=== PATIENT | female | born 1995 | race Hispanic/Latino ===

== ENCOUNTER 2021-12-24 14:34 | Inpatient (IN) | payer MEDICAID ==
[2021-12-24] MEDS ORDERED: LACTATED RINGERS 1,000 ML ONE (14:58)
--- NOTE | 2021-12-24 15:46 | History and Physical Report ---
History of Present Illness Date of examination: 12/24/21 Date of admission: 12/24/21 14:34 Chief complaint: Pt sent from [facility] for IOL d/t oligohydramnios and DM type 1 History of present illness: EDC Calculations by LMP: 12/31/2021 Past History : 1 Term Births: 0 Premature Births: 0 Living Children: 0 Para: 0 Mult. Births: 0 Prev : 0 Aborta: 0 Elect. Ab: 0 Spont. Ab: 0 Ectopics: 0 Past Medical History: Type 1 DM- sees Dr Lux Past Surgical History: Negative Past Surgical History Family History Summary: Father - Has Family History of Hypertension - Entered On: 05/04/2021 Mother - Has Family History of Diabetes - Entered On: 05/04/2021 MGF - Has Family History of Coronary Heart Disease - Entered On: 05/04/2021 Past Medical History Anesthesia Complications: negative Anemia: negative Autoimmune Disorder: negative Bleeding Disorder: negative Blood Transfusions: negative Breast Disease: negative Diabetes: negative Heart Disease: negative Hypertension: negative Hepatitis/Liver Disease: negative Kidney Disease/UTI: negative Neurologic/Epilepsy/Migraines: negative Phlebitis/Varicosities: negative Psychiatric: negative Pulmonary Disease/Asthma: negative Thyroid Disease: negative Hospitalizations: negative Surgery (Non-quality assurance lead): Negative Past Surgical History Abnormal PAP: negative GIO Exposure: negative Infertility: negative Uterine Anomaly: negative Uterine Surgery (not C/S): negative Other Gynecologic Problems: negative Infection History Hx of STD: none HIV Risk Eval: no Hepatitis B Risk Eval: low risk Personal hx. of genital herpes: yes Partner hx. of genital herpes: no Rash, Viral, or Febrile illness since last LMP? no Varicella/Chicken Pox Status: Unknown TB Risk: no Genetic History Congenital Heart Defect: Mom: no Dad: no [place] Disease: Mom: no Dad: no Thalassemia Mom: no Dad: no Neural Tube Defect Mom: no Dad: no Down's Syndrome Mom: no Dad: no [place]-Sachs Mom: no Dad: no Sickle Cell Disease/Trait Mom: no Dad: no Hemophilia Mom: no Dad: no Muscular Dystrophy Mom: no Dad: no Cystic Fibrosis Mom: no Dad: no [place] Chorea Mom: no Dad: no Mental Retardation Mom: no Dad: no Fragile X Mom: no Dad: no Other Genetic/Chromosomal Disorder Mom: no Dad: no Child w/other defect Mom: no Dad: no Enviromental Exposures Enviromental Exposures Reviewed Xray Exposure: no Medication, drug, or alcohol use since LMP: no Chemical/Other Exposure: no Exposure to Cat Liter: no Hx of Parvovirus (Fifth Disease): no Occupational Exposure to Children: none Current Allergies (reviewed today): No known allergies Past History Past Medical History: diabetes, other (See HPI) Past Surgical History: other (See HPI) GRADE CHECKER History: other (See HPI) Family/Genetic History: other (See HPI) Social history: other (See HPI) - Obstetrical History Expected Date of Delivery: 01/06/22 Actual Gestation: 38 Week(s) 2 Day(s) : 1 Para: 0 Hx # Term Pregnancies: 0 Number of Pregnancies: 0 Spontaneous Abortions: 0 Induced : 0 Number of Living Children: 0 Medications and Allergies Allergies Allergy/AdvReac Type Severity Reaction Status Date / Time sulfamethoxazole Allergy Hives Verified 12/24/21 15:27 [From Bactrim] trimethoprim [From Bactrim] Allergy Hives Verified 12/24/21 15:27 Home Medications Medication Instructions Recorded Confirmed Last Taken Type Vit-Fe Fumar-FA [ 1 tab PO QDAY 12/25/21 12/25/21 12/23/21 History Vitamin] Valacyclovir HCl [Valacyclovir] 500 mg PO DAILY 12/25/21 12/25/21 1 Week Ago History ~12/18/21 Review of Systems All systems: negative - Vital Signs Vital signs: Vital Signs Pulse BP Pulse Ox 82 122/75 98 12/24/21 15:08 12/24/21 15:08 12/24/21 15:08 Temp Pulse Resp BP Pulse Ox 82 122/75 98 12/24/21 15:33 12/24/21 15:08 12/24/21 15:33 - Physical Exam Breasts: Positive: normal Cardiovascular: Regular rate Lungs: Positive: Normal air movement Abdomen: Positive: normal appearance, soft Extremities: Positive: normal - Obstetrical FHR: category 1 Uterine Contraction Monitor Mode: External Cervical Dilatation: 0 (per RN) Uterine Contraction Frequency (min): occassional Uterine Contraction Duration: 40-60 Uterine Contraction Pattern: Irregular Uterine Tone Measurement Phase: Resting Uterine Contraction Intensity: Mild Results Result Diagrams: 12/24/21 16:35 All other labs normal. Assessment and Plan 26 yo at 38 1/7 weeks sent from [facility] for IOL d/t JESSICA 4. Admission orders in. complicated by DM type 1. All questions addressed. - Patient Problems (1) Oligohydramnios Current Visit: Yes Status: Acute Qualifiers: Fetus number: single or unspecified fetus Trimester: third trimester Qualified Code(s): O41.03X0 - Oligohydramnios, third trimester, not applicable or unspecified Plan to address problem: Close monitoring, IOL Cervidil for cervical ripening for tonight Discussed serial induction could take 3-5 days (2) Diabetes type I Current Visit: Yes Status: Acute Qualifiers: Diabetes mellitus complication status: without complication Qualified Code(s): E10.9 - Type 1 diabetes mellitus without complications Plan to address problem: Q4h accuchecks, and sliding scale insulin. (3) 38 weeks gestation of Current Visit: Yes Status: Acute
[2021-12-24] MEDS ORDERED: DEXTROSE 50% IN WATER (25GM) 50 ML SYRINGE IV PRN (15:52)
[2021-12-24] MEDS ORDERED: OXYTOCIN DRIP 30 UNITS/500 ML BAG IV SCH (16:00)
[2021-12-24] MEDS ORDERED: fentaNYL 100 MCG/2 ML INJ IV PRN (16:00)
[2021-12-24] MEDS ORDERED: ACETAMINOPHEN 325 MG TAB PO PRN (17:00)
[2021-12-24] MEDS ORDERED: BUTORPHANOL 2 MG/1 ML INJ IV PRN (17:00)
[2021-12-24] MEDS ORDERED: CARBOPROST TROMETHAMINE 250 MCG/1 ML INJ IM PRN (17:00)
[2021-12-24] MEDS ORDERED: ePHEDrine SULFATE 50 MG/1 ML INJ IV PRN (17:00)
[2021-12-24] MEDS ORDERED: DINOPROSTONE 10 MG VAG SUPP VG NR (17:00)
[2021-12-24] MEDS ORDERED: DEXTROSE 10% *Hypoglycemia IV PRN (17:02)
[2021-12-24 17:14] LABS: Hemoglobin 11.4 gm/dl (10.1-14.3); Mean Corpuscular HGB Conc 33 % (30-34); Mean Corpuscular Volume 90 fl (79-97); Platelet Count 253 K/mm3 (140-440); Red Blood Count 3.79 M/mm3 (3.65-5.03); Red Cell Distribution Width 12.7 % (13.2-15.2)
[2021-12-24] MEDS ORDERED: LIDOCAINE (2%) 20 MG/1 ML VIAL 20 ML MDV INFILTRATI ONE (17:30)
[2021-12-24] MEDS ORDERED: miSOPROStol 200 MCG TAB PR PRN (17:30)
[2021-12-24] MEDS ORDERED: OXYTOCIN 10 UNIT/1 ML INJ IM PRN (17:30)
[2021-12-24] MEDS ORDERED: TERBUTALINE 1 MG/1 ML INJ SUB-Q PRN (17:30)
[2021-12-24] MEDS ORDERED: ONDANSETRON 4 MG/2 ML INJ IV PRN (18:00)
[2021-12-24] MEDS ORDERED: LOPERAMIDE 2 MG CAP PO PRN (18:00)
[2021-12-24] MEDS ORDERED: METHYLERGONOVINE MALEATE 0.2 MG/ML VIAL IM PRN (18:00)
[2021-12-24] MEDS: INSULIN REGULAR, HUMAN 100 UNITS/1 ML SUB-Q SCH ×2 (18:31→22:54)
[2021-12-24] MEDS ORDERED: ZOLPIDEM 5 MG TAB PO PRN (19:14)
[2021-12-24] MEDS ORDERED: MINERAL OIL 30 ML ORAL LIQD PO PRN (22:00)
--- NOTE | 2021-12-25 06:09 | Progress Note ---
Assessment and Plan A: 26 y.o. @ 39.1 wks, IOL d/t Oligo, Type 1 DM. Cervical exam /2. - Patient Problems (1) 38 weeks gestation of Current Visit: Yes Status: Acute Plan to address problem: Will allow shower and breakfast. After breakfast continue with IOL with Pitocin. Continue to monitor status through EFM. -Currently category 1. Anticipate . (2) Diabetes type I Current Visit: Yes Status: Acute Qualifiers: Diabetes mellitus complication status: without complication Qualified Code(s): E10.9 - Type 1 diabetes mellitus without complications Plan to address problem: Glucose ranges have been 60-70. Continue with Accuchecks per protocol. Subjective - Subjective Date of service: 12/25/21 Principal diagnosis: IUP @ 39.1, IOL d/t Oligo, Type 1 DM Interval history: Pt reports feeling some contractions. Patient reports: movement normal, contractions Objective - Vital Signs Vital Signs: Vital Signs - 12hr 12/24/21 12/24/21 12/24/21 18:13 18:18 18:22 Pulse Rate 86 85 74 Blood Pressure 117/60 O2 Sat by Pulse 97 98 Oximetry O2 Sat by Pulse Oximetry [ Throughout] 12/24/21 12/24/21 12/24/21 18:23 18:28 18:33 Pulse Rate 72 77 87 Blood Pressure O2 Sat by Pulse 97 98 97 Oximetry O2 Sat by Pulse Oximetry [ Throughout] 12/24/21 12/24/21 12/24/21 18:38 18:43 18:48 Pulse Rate 76 82 84 Blood Pressure O2 Sat by Pulse 98 99 98 Oximetry O2 Sat by Pulse Oximetry [ Throughout] 12/24/21 12/24/21 12/24/21 18:53 18:58 19:07 Pulse Rate 83 75 71 Blood Pressure O2 Sat by Pulse 98 98 99 Oximetry O2 Sat by Pulse Oximetry [ Throughout] 12/24/21 12/24/21 12/24/21 19:12 19:17 19:22 Pulse Rate 80 76 73 Blood Pressure O2 Sat by Pulse 99 99 98 Oximetry O2 Sat by Pulse Oximetry [ Throughout] 12/24/21 12/24/21 12/24/21 19:24 19:27 19:32 Pulse Rate 66 75 80 Blood Pressure 119/77 O2 Sat by Pulse 98 97 Oximetry O2 Sat by Pulse Oximetry [ Throughout] 12/24/21 12/24/21 12/24/21 19:37 19:42 19:47 Pulse Rate 78 73 74 Blood Pressure O2 Sat by Pulse 98 98 98 Oximetry O2 Sat by Pulse Oximetry [ Throughout] 12/24/21 12/24/21 12/24/21 19:50 19:52 19:57 Pulse Rate 69 70 Blood Pressure O2 Sat by Pulse 98 98 Oximetry O2 Sat by Pulse 98 Oximetry [ Throughout] 12/24/21 12/24/21 12/24/21 20:02 20:07 20:12 Pulse Rate 74 80 70 Blood Pressure O2 Sat by Pulse 98 98 98 Oximetry O2 Sat by Pulse Oximetry [ Throughout] 12/24/21 12/24/21 12/24/21 20:17 20:22 20:24 Pulse Rate 81 75 68 Blood Pressure 113/66 O2 Sat by Pulse 98 98 Oximetry O2 Sat by Pulse Oximetry [ Throughout] 12/24/21 12/24/21 12/24/21 20:27 20:32 20:37 Pulse Rate 80 75 84 Blood Pressure O2 Sat by Pulse 98 97 97 Oximetry O2 Sat by Pulse Oximetry [ Throughout] 12/24/21 12/24/21 12/24/21 20:42 20:47 20:52 Pulse Rate 76 72 76 Blood Pressure O2 Sat by Pulse 97 97 97 Oximetry O2 Sat by Pulse Oximetry [ Throughout] 12/24/21 12/24/21 12/24/21 20:57 21:02 21:07 Pulse Rate 76 76 78 Blood Pressure O2 Sat by Pulse 97 98 98 Oximetry O2 Sat by Pulse Oximetry [ Throughout] 12/24/21 12/24/21 12/24/21 21:12 21:17 21:22 Pulse Rate 85 72 82 Blood Pressure O2 Sat by Pulse 97 97 98 Oximetry O2 Sat by Pulse Oximetry [ Throughout] 12/24/21 12/24/21 12/24/21 21:24 21:27 21:34 Pulse Rate 72 74 76 Blood Pressure 110/66 O2 Sat by Pulse 98 98 Oximetry O2 Sat by Pulse Oximetry [ Throughout] 12/24/21 12/24/21 12/24/21 21:39 21:44 21:49 Pulse Rate 71 69 72 Blood Pressure O2 Sat by Pulse 97 97 97 Oximetry O2 Sat by Pulse Oximetry [ Throughout] 12/24/21 12/24/21 12/24/21 21:54 21:59 22:04 Pulse Rate 79 80 77 Blood Pressure O2 Sat by Pulse 97 97 97 Oximetry O2 Sat by Pulse Oximetry [ Throughout] 12/24/21 12/24/21 12/24/21 22:09 22:14 22:19 Pulse Rate 78 80 72 Blood Pressure O2 Sat by Pulse 97 97 93 Oximetry O2 Sat by Pulse Oximetry [ Throughout] 12/24/21 12/24/21 12/24/21 22:24 22:29 22:34 Pulse Rate 68 77 69 Blood Pressure 105/65 O2 Sat by Pulse 98 97 98 Oximetry O2 Sat by Pulse Oximetry [ Throughout] 12/24/21 12/24/21 12/24/21 22:39 22:44 22:49 Pulse Rate 77 70 78 Blood Pressure O2 Sat by Pulse 98 97 97 Oximetry O2 Sat by Pulse Oximetry [ Throughout] 12/24/21 12/24/21 12/24/21 22:54 22:59 23:04 Pulse Rate 68 72 68 Blood Pressure O2 Sat by Pulse 97 97 97 Oximetry O2 Sat by Pulse Oximetry [ Throughout] 12/24/21 12/24/21 12/24/21 23:09 23:14 23:19 Pulse Rate 79 78 87 Blood Pressure O2 Sat by Pulse 97 97 97 Oximetry O2 Sat by Pulse Oximetry [ Throughout] 12/24/21 12/24/21 12/24/21 23:24 23:29 23:34 Pulse Rate 67 70 70 Blood Pressure 104/59 O2 Sat by Pulse 97 97 97 Oximetry O2 Sat by Pulse Oximetry [ Throughout] 12/24/21 12/24/21 12/24/21 23:39 23:44 23:49 Pulse Rate 75 73 73 Blood Pressure O2 Sat by Pulse 97 97 97 Oximetry O2 Sat by Pulse Oximetry [ Throughout] 12/24/21 12/24/21 12/25/21 23:54 23:59 00:04 Pulse Rate 77 72 73 Blood Pressure O2 Sat by Pulse 97 97 98 Oximetry O2 Sat by Pulse Oximetry [ Throughout] 12/25/21 12/25/21 12/25/21 00:09 00:14 00:19 Pulse Rate 71 72 67 Blood Pressure O2 Sat by Pulse 98 97 97 Oximetry O2 Sat by Pulse Oximetry [ Throughout] 12/25/21 12/25/21 12/25/21 00:24 00:29 00:34 Pulse Rate 62 95 H 67 Blood Pressure 110/68 O2 Sat by Pulse 97 97 97 Oximetry O2 Sat by Pulse Oximetry [ Throughout] 12/25/21 12/25/21 12/25/21 00:39 00:44 00:49 Pulse Rate 92 H 92 H 68 Blood Pressure O2 Sat by Pulse 98 97 97 Oximetry O2 Sat by Pulse Oximetry [ Throughout] 12/25/21 12/25/21 12/25/21 00:54 00:59 01:04 Pulse Rate 70 75 79 Blood Pressure O2 Sat by Pulse 97 97 98 Oximetry O2 Sat by Pulse Oximetry [ Throughout] 12/25/21 12/25/21 12/25/21 01:09 01:14 01:19 Pulse Rate 73 66 71 Blood Pressure O2 Sat by Pulse 98 98 98 Oximetry O2 Sat by Pulse Oximetry [ Throughout] 12/25/21 12/25/21 12/25/21 01:24 01:29 01:34 Pulse Rate 69 67 67 Blood Pressure 109/67 O2 Sat by Pulse 99 98 97 Oximetry O2 Sat by Pulse Oximetry [ Throughout] 12/25/21 12/25/21 12/25/21 01:39 01:44 01:49 Pulse Rate 66 72 74 Blood Pressure O2 Sat by Pulse 97 97 97 Oximetry O2 Sat by Pulse Oximetry [ Throughout] 12/25/21 12/25/21 12/25/21 01:54 01:59 02:04 Pulse Rate 71 68 73 Blood Pressure O2 Sat by Pulse 98 97 98 Oximetry O2 Sat by Pulse Oximetry [ Throughout] 12/25/21 12/25/21 12/25/21 02:09 02:14 02:19 Pulse Rate 71 90 77 Blood Pressure O2 Sat by Pulse 98 97 97 Oximetry O2 Sat by Pulse Oximetry [ Throughout] 12/25/21 12/25/21 12/25/21 02:24 02:29 02:40 Pulse Rate 74 73 77 Blood Pressure 111/58 O2 Sat by Pulse 97 98 99 Oximetry O2 Sat by Pulse Oximetry [ Throughout] 12/25/21 12/25/21 12/25/21 02:45 02:50 02:55 Pulse Rate 74 61 66 Blood Pressure O2 Sat by Pulse 98 98 98 Oximetry O2 Sat by Pulse Oximetry [ Throughout] 12/25/21 12/25/21 12/25/21 03:00 03:05 03:10 Pulse Rate 68 68 69 Blood Pressure O2 Sat by Pulse 98 98 98 Oximetry O2 Sat by Pulse Oximetry [ Throughout] 12/25/21 12/25/21 12/25/21 03:15 03:20 03:24 Pulse Rate 61 69 73 Blood Pressure 112/66 O2 Sat by Pulse 98 98 Oximetry O2 Sat by Pulse Oximetry [ Throughout] 12/25/21 12/25/21 12/25/21 03:25 03:30 03:35 Pulse Rate 65 70 71 Blood Pressure O2 Sat by Pulse 98 97 97 Oximetry O2 Sat by Pulse Oximetry [ Throughout] 12/25/21 12/25/21 12/25/21 03:40 03:45 03:50 Pulse Rate 67 66 61 Blood Pressure O2 Sat by Pulse 97 97 97 Oximetry O2 Sat by Pulse Oximetry [ Throughout] 12/25/21 12/25/21 12/25/21 03:55 04:00 04:05 Pulse Rate 61 60 58 L Blood Pressure O2 Sat by Pulse 97 97 97 Oximetry O2 Sat by Pulse Oximetry [ Throughout] 12/25/21 12/25/21 12/25/21 04:10 04:15 04:20 Pulse Rate 65 64 62 Blood Pressure O2 Sat by Pulse 97 98 97 Oximetry O2 Sat by Pulse Oximetry [ Throughout] 12/25/21 12/25/21 12/25/21 04:24 04:25 04:30 Pulse Rate 63 76 65 Blood Pressure 117/67 O2 Sat by Pulse 97 98 Oximetry O2 Sat by Pulse Oximetry [ Throughout] 12/25/21 12/25/21 12/25/21 04:35 04:40 04:45 Pulse Rate 76 58 L 64 Blood Pressure O2 Sat by Pulse 98 98 98 Oximetry O2 Sat by Pulse Oximetry [ Throughout] 12/25/21 12/25/21 12/25/21 04:50 04:55 05:00 Pulse Rate 65 70 61 Blood Pressure O2 Sat by Pulse 98 97 98 Oximetry O2 Sat by Pulse Oximetry [ Throughout] 12/25/21 12/25/21 12/25/21 05:05 05:10 05:15 Pulse Rate 76 67 82 Blood Pressure O2 Sat by Pulse 98 98 97 Oximetry O2 Sat by Pulse Oximetry [ Throughout] 0212/25/21 12/25/21 05:20 05:25 05:30 Pulse Rate 73 64 65 Blood Pressure 117/67 O2 Sat by Pulse 98 98 98 Oximetry O2 Sat by Pulse Oximetry [ Throughout] 12/25/21 12/25/21 12/25/21 05:35 05:40 05:49 Pulse Rate 87 73 79 Blood Pressure O2 Sat by Pulse 97 99 99 Oximetry O2 Sat by Pulse Oximetry [ Throughout] 12/25/21 12/25/21 12/25/21 05:54 05:59 06:04 Pulse Rate 77 73 73 Blood Pressure O2 Sat by Pulse 99 99 97 Oximetry O2 Sat by Pulse Oximetry [ Throughout] - Exam Narrative Exam: Glucose levels have been 60-70. Breasts: deferred Cardiovascular: Regular rate Lungs: Normal air movement Abdomen: Present: normal appearance, soft Vulva: both: normal Uterus: Present: normal FHR: category 1 Uterine Contraction Monitor Mode: External Cervical Dilatation: 1 Cervical Effacement Percentage: 50 station: -3 Uterine Contraction Pattern: Regular Uterine Tone Measurement Phase: Resting Uterine Contraction Intensity: Mild Extremities: normal Deep Tendon Reflex Grade: Normal +2 - Labs Labs: Abnormal Labs 12/24/21 12/24/21 12/25/21 16:35 22:40 02:53 RDW 12.7 L POC Glucose 64 L 68 L Laboratory Results - last 24 hr 12/24/21 12/24/21 12/24/21 16:35 16:35 16:35 WBC 10.7 RBC 3.79 Hgb 11.4 Hct 34.0 MCV 90 MCH 30 MCHC 33 RDW 12.7 L Plt Count 253 POC Glucose Syphilis IgG/IgM Ab Nonreactive Blood Type A POSITIVE Antibody Screen Negative 12/24/21 12/24/21 12/25/21 18:26 22:40 02:53 WBC RBC Hgb Hct MCV MCH MCHC RDW Plt Count POC Glucose 71 64 L 68 L Syphilis IgG/IgM Ab Blood Type Antibody Screen
[2021-12-25] MEDS: INSULIN REGULAR, HUMAN 100 UNITS/1 ML SUB-Q SCH ×2 (07:56→11:30)
[2021-12-25] MEDS: LACTATED RINGERS 1,000 ML IV SCH ×2 (08:03→11:39)
[2021-12-25] MEDS ORDERED: OXYTOCIN DRIP 30 UNITS/500 ML BAG IV SCH (09:00)
[2021-12-25] MEDS ORDERED: ACETAMINOPHEN 325 MG TAB PO PRN ×2 (10:00→15:42)
--- NOTE | 2021-12-25 12:41 | Procedure Note ---
OB Delivery Note - Delivery Date of Delivery: 12/25/21 Presales Engineer: [facility] (NINA Valencia) Estimated blood loss: 100cc - Vaginal Delivery presentation: vertex Delivery position: OA Intrapartum events: other(please specify) (Type 1 DM, Oligo) Delivery induction: cervidil Delivery augmentation: pitocin Delivery monitor: external FHT, external uterine Route of delivery: Delivery placenta: spontaneous Delivery cord: 3 umbilical vessels Episiotomy: none Delivery laceration: 1st degree Anesthesia: none Delivery comments: Baby girl delivered over an intact perineum. CIELO presentation. Nuchal x1 reduced. Baby delivered with ease. placed on mom's ABD. 3 vessel cord clamped and cut after cessation of pulsation. Placenta delivered spontaneously, intact and complete. pathology send out. Uterus firm with massage and pitocin. Perineum inspected, 1st degree vaginal noted. Hemostasis noted, Discussed with pt option to repair or heal on its own. pt opted for no repair. EBL 100. Baby's wgt 7#1oz. APGARS 9/9. Mom and baby LDR stable. NINA Valencia CNM - Infant A at 1 minute: 9 at 5 minutes: 9 Gender: Female (Wgt 7#1oz)
[2021-12-25] MEDS ORDERED: MAGNESIUM HYDROXIDE (MOM) ORAL LIQD UDC PO PRN (15:42)
[2021-12-25] MEDS ORDERED: ONDANSETRON 4 MG/2 ML INJ IV PRN (15:42)
[2021-12-25] MEDS ORDERED: PROMETHAZINE 25 MG TAB PO PRN (15:42)
[2021-12-25] MEDS ORDERED: BENZOCAINE/MENTHOL 20/0.5% TOP SPRAY 56 GM TP PRN (15:42)
[2021-12-25] MEDS ORDERED: diphenhydrAMINE 25 MG CAP PO PRN (15:42)
[2021-12-25] MEDS ORDERED: IBUPROFEN 600 MG TAB PO SCH (15:42)
[2021-12-25] MEDS ORDERED: LANOLIN/ZINC/DIMETHICONE (LANSINOH) 7 GM TP PRN ×2 (15:42)
[2021-12-25] MEDS ORDERED: WITCH HAZEL/ GLYCERIN PAD TP PRN (15:42)
[2021-12-25] MEDS ORDERED: INSULIN REGULAR, HUMAN 100 UNITS/1 ML SUB-Q SCH (17:00)
[2021-12-25] MEDS ORDERED: INSULIN NPH, HUMAN 100 UNIT/1 ML SUB-Q SCH (17:00)
[2021-12-25] MEDS: IBUPROFEN 800 MG TAB PO SCH (18:35)
[2021-12-25] MEDS: DOCUSATE SODIUM 100 MG CAP PO SCH (21:54)
[2021-12-25] MEDS ORDERED: ZOLPIDEM 5 MG TAB PO PRN (22:00)
[2021-12-26] MEDS: IBUPROFEN 800 MG TAB PO SCH ×3 (00:46→12:51)
[2021-12-26 00:55] LABS: Hematocrit 28.9 % (30.3-42.9); Hemoglobin 9.2 gm/dl (10.1-14.3)
--- NOTE | 2021-12-26 06:17 | Discharge Summary ---
Providers - Providers Date of Admission: 12/24/21 14:34 Date of discharge: 12/26/21 (pt desires discharge home today) Attending physician: CLEMENTE GARCIA 12/25/21 15:42 Consult to Parts Sales Associate [CONS] Routine Reason For Exam: assistance with , SNS Primary care physician: CLEMENTE GARCIA Hospitalization Reason for admission: induction of labor, IUP at term Delivery: Episiotomy: none Laceration: none Other procedures: none complications: none Discharge diagnosis: IUP at term delivered baby: female Condition at discharge: Good Disposition: 01 HOME / SELF CARE / HOMELESS - Discharge Diagnoses (1) Diabetes type I Status: Acute Qualifiers: Diabetes mellitus complication status: without complication Qualified Code(s): E10.9 - Type 1 diabetes mellitus without complications (2) (normal spontaneous vaginal delivery) Status: Acute Comment: Pt denies all complaints. Reports ambulating, voiding, eating, and infant without difficulty. Discharge precautions reviewed. Pt verbalizes understanding. Plan - Provider Discharge Summary Activity: routine, no sex for 6 weeks, no heavy lifting 4 weeks, no strenuous exercise Diet: routine Instructions: routine Additional instructions: [] Smoking cessation referral if applicable(refer to patient education folder for contact #) [] Refer to [facility]'s [facility] Center Booklet Call your doctor immediately for: * Fever > 100.5 * Heavy vaginal bleeding ( >1 pad per hour) * Severe persistent headache * Shortness of breath * Reddened, hot, painful area to leg or breast * * Congratulations! Please call [phone] and schedule your visit in 4 weeks. Thank you! - Follow up plan Follow up: CLEMENTE GARCIA MD [Primary Care Provider] - 7 Days
[2021-12-26] MEDS ORDERED: INSULIN REGULAR, HUMAN 100 UNITS/1 ML SUB-Q SCH (08:00)
[2021-12-26] MEDS ORDERED: INSULIN NPH, HUMAN 100 UNIT/1 ML SUB-Q SCH (08:00)
[2021-12-26] MEDS ORDERED: PRENATAL VIT27-FE FUMARATE-FOLIC ACID VIT TAB PO SCH (10:00)
[2021-12-26] MEDS: DOCUSATE SODIUM 100 MG CAP PO SCH (11:08)
[2021-12-26] MEDS ORDERED: TETANUS,DIPH,PERTUSS(ACELL) VACCINE 0.5 ML SYRINGE IM ONE (12:33)
[2021-12-26 15:37] VITALS: BP 109/63
== END 2021-12-26 16:25 | disposition home or self-care (01) | DRG 774 ==
LOC: LD 14:34 → OB 12-25 14:32
PROVIDERS: ADMIT Obstetrics & Gynecology; ATTEND Obstetrics & Gynecology
PROC: 10E0XZZ Delivery of Products of Conception, External Approach (ICD-10-PCS; principal; 2021-12-25)
PROC: 3E0P7VZ Introduction of Hormone into Female Reproductive, Via Natural or Artificial Opening (ICD-10-PCS; 2021-12-25)
PROC: 3E0234Z Introduction of Serum, Toxoid and Vaccine into Muscle, Percutaneous Approach (ICD-10-PCS; 2021-12-25)
DX: O41.03X0 Oligohydramnios, third trimester, not applicable or unspecified (principal); O98.32 Other infections with a predominantly sexual mode of transmission complicating childbirth; Z3A.38 38 weeks gestation of pregnancy; A60.00 Herpesviral infection of urogenital system, unspecified; O24.02 Pre-existing type 1 diabetes mellitus, in childbirth; Z37.0 Single live birth; O69.81X0 Labor and delivery complicated by cord around neck, without compression, not applicable or unspecified; O70.0 First degree perineal laceration during delivery; Z20.822 Contact with and (suspected) exposure to COVID-19; Z23 Encounter for immunization
CPT/HCPCS: 36415; 59200; 82962; 85014; 85018; 85027; 86592; 86850; 86900; 86901; 88307; G0378; J2354; Q9967; J1815; J2590; J3010; J7120; U0003